=== PATIENT | female | born 1995 | race Two or more races ===

== ENCOUNTER 2022-11-05 17:01 | Emergency (ER) | payer BC, MEDICAID ==
[~2022-11-05] VITALS: Ht 160 cm; Wt 52.2 kg
--- NOTE | 2022-11-05 20:00 | NUR ---
Patient eloped from facility. Dr. Cruz notified.
== END 2022-11-05 20:00 | disposition left against medical advice (07) ==
LOC: ER 17:01
DX: R33.9 Retention of urine, unspecified (principal); Z98.890 Other specified postprocedural states; B00.9 Herpesviral infection, unspecified; Z83.49 Family history of other endocrine, nutritional and metabolic diseases
CPT/HCPCS: A4663